=== PATIENT | male | born 1995 | race Caucasian/White ===

== ENCOUNTER 2022-05-21 06:42 | Emergency (ER) | payer OTHER ==
[~2022-05-21] VITALS: Ht 177.8 cm; Wt 61.2 kg
[2022-05-22] MEDS ORDERED: CITALOPRAM HBR10 MG PO (10:35)
[2022-05-22] MEDS ORDERED: ESTRADIOL2 MG PO (10:36)
[2022-05-22] MEDS ORDERED: ALDACTONE100 MG PO (10:36)
--- NOTE | 2022-05-24 13:56 | EKG ---
[facility] [address] [facility] [place] [id number] Signed Normal sinus rhythm Anterior infarct , age undetermined Abnormal ECG No previous ECGs available Confirmed by KOREY SILVER MD ([id number] on 05/24/2022 1:56:18 PM Electronically Signed By: KOREY SILVER MD 05/24/22 1356 PATIENT NAME: KERLINE DAMON Electrocardiogram DATE OF : [birth year] PHYSICIAN: KOREY SILVER MD REPORT #: [id number] REPORT IS CONFIDENTIAL AND NOT TO BE RELEASED WITHOUT AUTHORIZATION
== END 2022-05-23 22:35 | disposition short-term general hospital (02) ==
LOC: ED 06:42
DX: T39.312A Poisoning by propionic acid derivatives, intentional self-harm, initial encounter (principal); S61.512A Laceration without foreign body of left wrist, initial encounter; Z20.822 Contact with and (suspected) exposure to COVID-19; Z79.899 Other long term (current) drug therapy
CPT/HCPCS: 36415; 80048; 80053; 81001; 83735; 84443; 85025; 85610; 85730; 87502; 90471; 90715; 93005; 93010; 96360; 96361; 99285-25; A9270; C9803; G0480; J3480; J7030; U0003